=== PATIENT | female | born 1975 | race Caucasian/White ===

== ENCOUNTER 2025-01-14 18:47 | Emergency (ER) | payer MEDICAID, SELFPAY ==
[2025-01-14 18:49] VITALS: BMI 29.4
[2025-01-14 19:25] VITALS: BP 119/78; PULSE 97; RESP 18; TEMP 37.1; O2SAT 97
--- NOTE | 2025-01-14 19:36 | EDRME_ITS ---
Rapid Medical Screening Exam RME Arrival date/time: 01/14/25 18:47 Chief Complaint: General Adult/Misc Complain Time Seen by Provider: 01/14/25 19:28 Vital signs: Vital Signs Temperature 98.8 F 01/14/25 19:25 Pulse Rate 97 01/14/25 19:25 Respiratory Rate 18 01/14/25 19:25 Blood Pressure 119/78 01/14/25 19:25 Pulse Oximetry (%) 97 01/14/25 19:25 Oxygen Delivery Method Room Air 01/14/25 19:25 RME Narrative: 49-year-old female presents to the ED with a complaint of weakness, fatigue, excessive tiredness. She went to her primary care physician today and was told her hemoglobin was only 7.2 and needed blood transfusions. This is the third time she has needed a transfusion. She denies heavy menstrual periods and she denies melena. She has never seen a heating and blending supervisor for further workup and evaluation. I have greeted and performed a focused initial assessment of this patient. A comprehensive ED assessment and evaluation of the patient, analysis of all test results, and completion of the medical decision making process will be conducted by additional ED providers. All labs ordered as well as 2 units of PRBCs ordered.
--- NOTE | 2025-01-14 19:41 | EKG_ITS ---
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
--- NOTE | 2025-01-14 19:41 | XR_ITS ---
Examination: PA chest single view TECHNIQUE: Upright PA chest single view Date and time: 04/16/2025 2010 hours INDICATIONS: Weakness beginning 3 days ago. FINDINGS: Normal heart size No pneumonia or pulmonary edema The osseous structures are intact Impression: No pneumonia or pulmonary edema
[2025-01-14] MEDS: ACETAMINOPHEN 325 MG TABLET 650 MG PO (20:17)
[2025-01-14] MEDS: DiphenhydrAMINE 25 MG CAPSULE PO (20:17)
[2025-01-14 21:00] VITALS: BP 118/77; PULSE 79; RESP 18; O2SAT 97
[2025-01-14 22:00] VITALS: BP 108/79; PULSE 81; RESP 19; O2SAT 99
[2025-01-14 22:02] LABS: Basophils % (Auto) 1 % (0-2.5); Eosinophils % (Auto) 1 % (0-10); Hematocrit 26.2 % (36.0-46.0); Immature Granulocytes % (Auto) 0 % (0-0); Immature Granulocytes Auto 0.01 Thou/mm3 (0.00-0.00); Lymphocytes # (Auto) 1.9 Thou/mm3 (1.0-4.8); Lymphocytes % (Auto) 33 % (10-50); Mean Corpuscular Hemoglobin 19.4 pg (25.0-35.0); Mean Corpuscular Volume 67 fL (80-100); Monocytes # (Auto) 0.8 Thou/mm3 (0.0-0.8); Monocytes % (Auto) 14 % (0-12); Neutrophils % (Auto) 51 % (37-80); Nucleated Red Blood Cell % 0 /100 WBC (0); Platelet Count 281 Thou/mm3 (140-440); RDW Standard Deviation 45.1 fL (36.4-46.3); Red Blood Count 3.91 Miln/mm3 (4.00-5.20); White Blood Count 5.8 Thou/mm3 (3.6-11.0)
[2025-01-14 22:16] LABS: Hemoglobin 7.6 g/dL (12.0-16.0)
[2025-01-14 22:18] LABS: Alanine Aminotransferase 13 U/L (10-49); Albumin, Serum 4.1 gm/dL (3.5-5.0); Albumin/Globulin Ratio 1.3 (1.2-2.2); Alkaline Phosphatase 119 U/L (46-116); Anion Gap 8 (7-16); Aspartate Amino Transferase 16 U/L (0-34); BUN/Creatinine Ratio 16 Ratio (12-20); Bilirubin,Total 0.3 mg/dL (0.3-1.2); Blood Urea Nitrogen 13 mg/dL (9-23); Calcium 9.7 mg/dL (8.3-10.6); Calcium (Corrected) 9.7 mg/dL (8.5-10.1); Carbon Dioxide 24.8 mMol/L (20.0-31.0); Chloride 103 mMol/L (98-107); Creatinine (Component) 0.8 mg/dL (0.6-1.3); Estimated Creatinine Clearance 85.1 mL/min (>60); Globulin 3.2 gm/dL (2.3-3.5); Glucose 130 mg/dL (74-106); Osmolality,Calculated 274 (275-295); Potassium 3.5 mMol/L (3.4-5.1); Sodium 136 mMol/L (136-145); Total Protein 7.3 gm/dL (5.7-8.2); Troponin I < 0.002 ng/mL (0.0-0.045); eGFR > 60 See Note
[2025-01-14 22:26] LABS: Partial Thromboplastin Time 24.2 Seconds (22.0-36.0); Prothrombin Time 10.8 Seconds (9.0-12.2)
[2025-01-14 22:36] VITALS: BP 115/76; PULSE 76; TEMP 37.2
[2025-01-14] MEDS: FUROSEMIDE INJ 10 MG/ML VIAL 2 ML 40 MG IVP (22:36)
[2025-01-14 23:00] VITALS: BP 111/83; PULSE 85; RESP 19; O2SAT 96
--- NOTE | 2025-01-14 23:00 | PC.NURSE ---
waiting for blood from bloodbank. Apparently, there is an issue with antibodies. blood bank will alert me when blood is ready. spoke with pt and family about the delay.
[2025-01-14 23:44] LABS: B-Type Natriuretic Peptide < 20 pg/mL (0-100)
[2025-01-15] VITALS: BP 107/69; PULSE 72; RESP 16; O2SAT 100
[2025-01-15 01:00] VITALS: BP 102/76; PULSE 86; RESP 24; O2SAT 100
[2025-01-15 01:31] LABS: Path Review Blood Smear Sent to Pathologist
[2025-01-15 02:00] VITALS: BP 92/70; PULSE 84; RESP 19; O2SAT 94
[2025-01-15 03:00] VITALS: BP 117/67; PULSE 78; RESP 17; O2SAT 99
--- NOTE | 2025-01-15 03:22 | PC.NURSE ---
checked in with bloodbank. blood is still not ready. pt asleep. arouses easily. family at bedside.
[2025-01-15 04:00] VITALS: BP 102/76; PULSE 101; RESP 18; O2SAT 100
--- NOTE | 2025-01-15 04:30 | PC.NURSE ---
GCS 15. A&O x4. pts son at bedside.pt decided to leave. states she will come back later today. pt states she is tired of waiting. Blood bank staff state there is an antibody issue and they are working on it but are unable to say how long the process will take. I explained to pt and family that they will likely have to go through another long wait if they leave now. also explained to pt and family in spnish and mexican, that leaving without getting blood transfusion could lead to serious injury and or even . Pt and her son Roxanna verbalized they understand and are willing to take the risk. I spoke with Daniel from blood bank. he states he will continue working on it and will leave a note to keep blood ready if pt comes back later today. pt and son signed the leaving AMA form. VS are stable.
== END 2025-01-15 04:30 | disposition left against medical advice (07) ==
PROVIDERS: Physician Assistant; Emergency Provider Emergency Medicine
DX: R53.1 Weakness (principal); R53.83 Other fatigue; Z53.29 Procedure and treatment not carried out because of patient's decision for other reasons
CPT/HCPCS: 36415; 71045; 80053; 81001; 81025; 83735; 83880; 84484; 85025; 85610; 85730; 86850; 86870; 86900; 86901; 86921; 86922; 87086; 93005; 99284; J1938; A9270